=== PATIENT | female | born 1940 | race Caucasian/White ===

== ENCOUNTER 2016-08-29 12:16 | Observation (INO) | payer MEDICARE, OTHER ==
[2016-08-29 13:43] LABS: Hematocrit 36 % (35-47); Mean Corpuscular HGB Conc 33 g/dl (31-36); Mean Corpuscular Hemoglobin 29 pg (27-31); Mean Corpuscular Volume 89 fL (80-97); Mean Platelet Volume 9 um3 (7.4-10.4); Red Blood Count 4.07 10^6/ul (4.0-5.4); Red Cell Distribution Width 14 % (10.5-15); White Blood Count 8.4 10^3/ul (3.5-10.8)
[2016-08-29] MEDS ORDERED: Ondansetron INJ* 2 MG/ML VIAL IV ONE (13:52)
[2016-08-29] MEDS ORDERED: Morphine INJ* 4 MG/ML 1 ML CARPUJECT IV ONE ×2 (13:52→15:38)
[2016-08-29 14:05] LABS: Urine Bacteria 1+ (Absent); Urine Bilirubin Negative (Negative); Urine Glucose Negative (Negative); Urine Nitrite Negative (Negative)
[2016-08-29 14:06] LABS: Albumin 3.6 g/dL (3.2-5.2); C Reactive Protein 179.49 mg/L (< 5.00); EGFR African American 66.1 (>60); EGFR Non-African American 51.4 (>60); Globulin 3.5 g/dL (2-4); Potassium 3.5 mmol/L (3.5-5.0); Total Bilirubin 0.8 mg/dL (0.2-1.0); Total Protein 7.1 g/dL (6.4-8.9)
--- NOTE | 2016-08-29 14:59 | RAD ---
INDICATION: LEFT leg swelling post LEFT knee replacement 1 week ago. COMPARISON: January 10, 2016 TECHNIQUE: Quezada scale, color Doppler, and spectral analysis of the deep veins of the LEFT lower extremity. Vessel compression, phasicity, and augmentation assessed. REPORT: The LEFT common femoral, great saphenous, profunda femoral, femoral, popliteal, peroneal, and posterior tibial veins are patent. Small medial popliteal fossa fluid collection measuring 3.3 x 0.8 x 1.4 cm consistent with a popliteal cyst. No popliteal cyst visualized on the prior ultrasound which may be technical. Patency of the contralateral common femoral vein documented. IMPRESSION: No evidence for LEFT lower extremity deep venous thrombosis. Small LEFT popliteal cyst.
--- NOTE | 2016-08-29 15:17 | RAD ---
INDICATION: Left knee pain, recent total left knee revision replacement August 23 2016 at outside institution. TECHNIQUE: 2 views of the left knee were obtained. FINDINGS: The patient is status post total left knee placement surgery. The bones and prostheses are in normal alignment. There is no evidence for fracture or loosening. There are multiple surgical garrett present anterior and air within the anterior soft tissues consistent with the patient's recent surgery. IMPRESSION: STATUS POST RECENT TOTAL LEFT KNEE REVISION REPLACEMENT.
[2016-08-29] MEDS ORDERED: NS 0.9% 1000 ML* 1,000 ML IV ONE (16:52)
--- NOTE | 2016-08-29 16:57 | PN ---
Progress Note - Progress Note Note: Asked by Dr. Bravo to admit pt s/p knee surgery at [facility] for intractable post op pain. I communicated to Dr. Bravo that medicine will have no problem with admitting the pt as long as there is an available orthopedic surgeon to f/u with pt during the hospital stay.
--- NOTE | 2016-08-29 17:07 | ED ---
Kush Zhu Anna, scribed for Tye Bravo MD on 08/29/16 at 1310 . Lower Extremity - HPI Summary HPI Summary: Patient is a 76 y/o female coming to [facility] presenting with left knee pain that began yesterday. She describes the severity of the pain as 10/10. She was not able to sleep last night because of the pain. Her body felt warm last night, and she was SOB. The pain is not alleviated by the use of Percocet and Tramadol. On 08/23/2016 she had knee surgery with Dr. Her in [place]. She was able to ambulate with assistance before discharge from [facility] and had therapy twice a day. - History of Current Complaint Chief Complaint: ED Stated Complaint: LT KNEE PAIN Time Seen by Provider: 08/29/16 13:04 Hx Obtained From: Patient, Family/Sewing Department Supervisor Onset/Duration: Still Present Pain Intensity: 10 Pain Scale Used: 0-10 Numeric - Allergies/Home Medications Allergies/Adverse Reactions: Allergies Allergy/AdvReac Type Severity Reaction Status Date / Time Meperidine [From Demerol HCl] Allergy Unknown Nausea And Verified 03/28/16 11:27 Vomiting Lactone Allergy GI Upset Verified 03/28/16 11:27 Lactose Allergy Nausea And Verified 03/28/16 11:27 Vomiting Pramipexole Allergy See Comment Verified 03/28/16 11:27 Meloxicam AdvReac Severe Shortness Verified 03/28/16 11:27 of Breath GARY Inhibitors AdvReac Coughing Verified 03/28/16 11:27 Aspirin AdvReac Bleeding Verified 03/28/16 11:27 Calcium Channel Blockers AdvReac Edema Verified 03/28/16 11:27 Naproxen [From Aleve] AdvReac Rash Verified 03/28/16 11:27 Sertraline [From Zoloft] AdvReac Anxiety Verified 03/28/16 11:27 Temazepam [From Restoril] AdvReac See Comment Verified 03/28/16 11:27 dairy Allergy Stomach Uncoded 03/28/16 11:27 Cramps pramipexole Allergy See Comment Uncoded 03/28/16 11:27 PMH/Surg Hx/FS Hx/Imm Hx Endocrine/Hematology History: Reports: Hx Anemia Denies: Hx Diabetes Cardiovascular History: Reports: Hx Hypertension Denies: Hx Pacemaker/ICD Respiratory History: Reports: Hx Sleep Apnea GI History: Reports: Hx Gastroesophageal Reflux Disease History: Reports: Other Problems/Disorders - bladder cancer Denies: Hx Dialysis, Hx Renal Disease Musculoskeletal History: Reports: Hx Arthritis, Hx Back Problems Sensory History: Reports: Hx Contacts or Glasses Denies: Hx Hearing Aid Opthamlomology History: Reports: Hx Contacts or Glasses Neurological History: Reports: Hx Headaches, Hx Migraine, Other Neuro Impairments/Disorders - PAIN CLINIC PATIENT Psychiatric History: Denies: Hx Panic Disorder - Cancer History Cancer Type, Location and Year: BLADDER CA Hx Chemotherapy: No Hx Radiation Therapy: No - Surgical History Surgery Procedure, Year, and Place: Bladder Cancer Excision Cystoscopically; Total Right Knee 2004; Total Left Knee 2006; Right Foot Hammertoe Surgery; LSP SURGERY 2011; LT ANKLE SURGERY; CATARACT BILATERAL, back surgery; Knee surgery Infectious Disease History: Denies: Traveled Outside the [place] in Last 30 Days - Family History Known Family History: Negative: Cardiac Disease - Social History Occupation: Retired Lives: Alone Alcohol Use: None Substance Use Type: Reports: None Smoking Status (MU): Never Smoked Tobacco Review of Systems Positive: Other - Generalized warmth Positive: Shortness Of Breath Positive: Arthralgia All Other Systems Reviewed And Are Negative: Yes Physical Exam - Summary Physical Exam Summary: VITAL SIGNS: Reviewed. GENERAL: Patient is an obese female who is lying comfortable in the stretcher. Patient is not in any acute respiratory distress. HEAD AND FACE: No signs of trauma. No ecchymosis, hematomas or skull depressions. No sinus tenderness. EYES: PERRLA, EOMI x 2, No injected conjunctiva, no nystagmus. EARS: Hearing grossly intact. Ear canals and tympanic membranes are within normal limits. MOUTH: Oropharynx within normal limits. NECK: Supple, trachea is midline, no adenopathy, no JVD, no carotid bruit, no c- spine tenderness, neck with full ROM. CHEST: Symmetric, no tenderness at palpation LUNGS: Clear to auscultation bilaterally. No wheezing or crackles. CVS: Regular rate and rhythm, S1 and S2 present, no murmurs or gallops appreciated. ABDOMEN: Soft, non-tender. No signs of distention. No rebound no guarding, and no masses palpated. Bowel sounds are normal. EXTREMITIES: Left knee with decrease ROM, bandages in the left knee secondary to a knee replacement on 08/23/2016. Good pulses and good capillary refill. NEURO: Alert and oriented x 3. No acute neurological deficits. Speech is normal and follows commands. SKIN: Dry and warm Triage Information Reviewed: Yes Vital Signs On Initial Exam: Initial Vitals Temp Pulse Resp BP Pulse Ox 99.3 F 93 16 128/66 87 08/29/16 12:58 08/29/16 12:58 08/29/16 12:58 08/29/16 12:58 08/29/16 12:58 Vital Signs Reviewed: Yes Diagnostics - Vital Signs Vital Signs Temp Pulse Resp BP Pulse Ox 08/29/16 12:58 99.3 F 93 16 128/66 87 - Laboratory Lab Results: Lab Results 08/29/16 08/29/16 08/29/16 Range/Units 13:27 13:27 13:51 WBC 8.4 (3.5-10.8) 10^3/ul RBC 4.07 (4.0-5.4) 10^6/ul Hgb 12.0 (12.0-16.0) g/dl Hct 36 (35-47) % MCV 89 (80-97) fL MCH 29 (27-31) pg MCHC 33 (31-36) g/dl RDW 14 (10.5-15) % Plt Count 298 (150-450) 10^3/ul MPV 9 (7.4-10.4) um3 Neut % (Auto) 81.2 (38-83) % Lymph % (Auto) 10.0 L (25-47) % [place] % (Auto) 8.2 (1-9) % Eos % (Auto) 0.3 (0-6) % Baso % (Auto) 0.3 (0-2) % Absolute Neuts (auto) 6.8 (1.5-7.7) 10^3/ul Absolute Lymphs (auto) 0.8 L (1.0-4.8) 10^3/ul Absolute Monos (auto) 0.7 (0-0.8) 10^3/ul Absolute Eos (auto) 0 (0-0.6) 10^3/ul Absolute Basos (auto) 0 (0-0.2) 10^3/ul Absolute Nucleated RBC 0.01 10^3/ul Nucleated RBC % 0.1 Sodium 137 (133-145) mmol/L Potassium 3.5 (3.5-5.0) mmol/L Chloride 92 L (101-111) mmol/L Carbon Dioxide 37 H (22-32) mmol/L Anion Gap 8 (2-11) mmol/L BUN 26 H (6-24) mg/dL Creatinine 1.04 H (0.51-0.95) mg/dL Est GFR ( Amer) 66.1 (>60) Est GFR (Non-Af Amer) 51.4 (>60) BUN/Creatinine Ratio 25.0 H (8-20) Glucose 113 H (70-100) mg/dL Calcium 11.0 H (8.6-10.3) mg/dL Total Bilirubin 0.80 (0.2-1.0) mg/dL AST 20 (13-39) U/L ALT 19 (7-52) U/L Alkaline Phosphatase 96 (34-104) U/L C-Reactive Protein 179.49 H (< 5.00) mg/L Total Protein 7.1 (6.4-8.9) g/dL Albumin 3.6 (3.2-5.2) g/dL Globulin 3.5 (2-4) g/dL Albumin/Globulin Ratio 1.0 (1-3) Urine Color Yellow Urine Appearance Cloudy Urine pH 8.0 (5-9) Ur Specific [place] 1.008 L (1.010-1.030) Urine Protein Negative (Negative) Urine Ketones Trace H (Negative) Urine Blood 1+ H (Negative) Urine Nitrate Negative (Negative) Urine Bilirubin Negative (Negative) Urine Urobilinogen Negative (Negative) Ur Leukocyte Esterase Negative (Negative) Urine WBC (Auto) Absent (Absent) Urine RBC (Auto) 1+(3-5/hpf) H (Absent) Ur Squamous Epith Cells Present H (Absent) Urine Bacteria 1+ H (Absent) Hyaline Casts Present H (Absent) Urine Glucose Negative (Negative) Result Diagrams: 08/29/16 13:27 08/29/16 13:27 Lab Statement: Any lab studies that have been ordered have been reviewed, and results considered in the medical decision making process. - Radiology Left Knee XR Xray Interpretation: No Acute Changes Radiology Interpretation Completed By: Radiologist - IMPRESSION: STATUS POST RECENT TOTAL LEFT KNEE REVISION REPLACEMENT. - Ultrasound No standard instances Ultrasound Interpretation: Positive (See Comments) Ultrasound Interpretation Completed By: Radiologist - VENOUS DOPPLER IMPRESSION : No evidence for LEFT lower extremity deep venous thrombosis. Small LEFT popliteal cyst. Re-Evaluation - Re-Evaluation First Eval Re-Evaluation Time: 16:39 Change: Unchanged Comment: The patient reports that she is still in pain. She refuses to go back to [place]. She says that she cannot take care of herself at home. Lower Extremity Course/Dx - Course Assessment/Plan: Patient is a 76 y/o female coming to [facility] presenting with left knee pain that began yesterday. She describes the severity of the pain as 10/10. She was not able to sleep last night because of the pain. Her body felt warm last night, and she was SOB. The pain is not alleviated by the use of Percocet and Tramadol. On 08/23/2016 she had knee surgery with Dr. Mariano in [facility]. She was able to ambulate with assistance before discharge from [facility] and had therapy twice a day. Blood work shows increased BUN and creatinine, CRP 179 consistent with her recent surgery, UA is contaminated. Blood work shows increased BUN and creatinine, glucose of 113 and Calcium of 11. In the Ed she was given IV fluids, Zofran and Morphine for pain. LLE U/S no DVT. Left knee x ray impression: s/p recent total left knee revision replacement. Patient reports that she is unable to ambulate and she is unable to take care of herself and her daughter reports that she can not help. She refuses to go back to [place] with Dr. Her the orthopedic surgeon did her surgery. I spoke with Dr. Wilson from the hospitalist services for admission and she requested an orthopedic consult before admission. I discussed the case with Dr. Stoddard from orthopedics and he will consult for the patient. .casting house worker was also consulted. I discuss my physical exam, findings and test results with Dr. Wilson from the hospitalist services and she agrees to admit patient to his services. Patient is hemodynamically stable alert and oriented x 3. - Diagnoses Differential Diagnosis/HQI/PQRI: Positive: Arthritis, Bursitis, Cellulitis, Dislocation, DVT, Fracture (Closed), Infection, Sprain, Strain Provider Diagnoses: Intractable knee pain, Inadequate pain control, Unable to care for herself, Obesity, S/P knee surgery - Physician Notifications Discussed Care of Patient With: Dr. Stoddard (orthopedics) at 1625. Dr. Stoddard recommends consulting with Dr. Velazquez, who works with the patient's surgeon in [place]. Dr. Velazquez (orthopedics) at 1628. Dr. Velazquez said the patient should consult with Dr. Her, her original surgeon. Dr. Stoddard (orthopedics) at 1640. Dr. Stoddard will come see the patient and accepts the patient for admission. Discharge - Discharge Plan Condition: Stable Disposition: ADMITTED TO [facility] documentation as recorded by the uKsh babin Anna accurately reflects the service I personally performed and the decisions made by me, Tye Bravo MD.
[2016-08-29] MEDS ORDERED: oxyCODONE/Acetamin 5/325 MG* TAB PO PRN (17:45)
[2016-08-29] MEDS ORDERED: Ondansetron INJ* 2 MG/ML VIAL IV PRN (17:45)
[2016-08-29] MEDS ORDERED: Enoxaparin(*) 30 MG/0.3 ML SYR SUBCUT SCH (18:00)
[2016-08-29] MEDS ORDERED: LORazepam TAB(*) 0.5 MG PO PRN (18:02)
[2016-08-29] MEDS: Omeprazole CAP* 20 MG PO SCH (19:39)
[2016-08-29] MEDS: oxyCODONE/Acetamin 5/325 MG* TAB PO SCH (19:39)
[2016-08-29] MEDS: Pregabalin CAP(*) 100 MG PO SCH (19:39)
[2016-08-29] MEDS: Docusate CAP* 100 MG PO SCH (19:39)
[2016-08-29] MEDS: Enoxaparin(*) 30 MG/0.3 ML SYR SUBCUT SCH (19:40)
--- NOTE | 2016-08-29 20:58 | HP ---
ADMISSION HISTORY AND PHYSICAL: DATE OF ADMISSION/DICTATION: 08/29/16 PRIMARY CARE PROVIDER: Dr. Purdy. ADMITTING PROVIDER: ELIANA Warner SUPERVISING PHYSICIAN: Dr. Sherri Wilson.* (DICTATED BY ELIANA WARNER) CONSULTING ORTHOPEDIST: Dr. Stoddard. CHIEF COMPLAINT: Intractable left knee pain. HISTORY OF PRESENT ILLNESS: This is a 76-year-old female who is postop day 6 status post revision of her left total knee replacement that was performed at [facility] with Dr. Her. The patient was discharged yesterday from [facility] with tramadol and Percocet for pain control and Lovenox for DVT prophylaxis. The patient states that she had been having difficulty with pain control throughout her hospital admission and there was some sort of insurance obstacle that prohibited her from being discharged to subacute rehab, and so instead she returned home with the help of her daughter. She awoke this morning with significant pain and had what she described as a panic attack as a result of that, some deep breathing and she improved. She was brought to the emergency department for further evaluation. The patient describes some mild nausea and decreased appetite that has been persistent since the surgery. She has been afebrile at home. She denies any shortness of breath or chest pain. She describes that her pain is not necessarily acutely worse today, but she has had poor control since the surgery. Also of note, the patient did not receive Lyrica during her last hospitalization. She is unsure why this was discontinued and the recommendation was to discontinue this at discharge and she did not resume it yesterday after returning home either. The patient has had two prior total knee replacements. These were several years ago and when asked about whether she had difficulty with pain control at that time, she was unable to answer, stating that it was too long ago for her to remember, but she does believe that she participated in rehab following both of those and was successful. PAST MEDICAL HISTORY: 1. Obstructive sleep apnea. 2. GERD. 3. Remote history of local bladder cancer, status post excision. 4. Iron-deficiency anemia. 5. Chronic back pain with radicular symptoms. 6. Migraine syndrome. PAST SURGICAL HISTORY: 1. Bladder cancer excision via cystoscopy. 2. Right total knee arthroplasty, 2004. 3. Left total knee arthroplasty, 2006. 4. Right hammer toe. 5. Lumbar spine surgery, 2012. 6. Left ankle surgery. 7. Bilateral cataract excision. HOME MEDICATIONS: 1. Vitamin D 2000 units p.o. daily. 2. Vitamin B12 1000 mcg p.o. daily. 3. Lovenox 30 mg subcu q.12 hours. 4. Nexium 40 mg p.o. b.i.d. 5. Ferrous sulfate 65 mg p.o. daily. 6. Lasix 20 mg p.o. daily. 7. Hydrochlorothiazide 25 mg p.o. daily. 8. Lorazepam 0.5 mg p.o. q.8 hours p.r.n. anxiety. 9. Multivitamin 1 tablet p.o. b.i.d. 10. Lyrica 100 mg p.o. t.i.d. - of note, this was chronic medication for the patient but was not continued during her recent hospitalization. 11. Percocet 1 to 2 tablets p.o. q.6 hours as needed for pain. 12. Ultram 50 mg p.o. q.6 hours p.r.n. mild pain. SOCIAL HISTORY: The patient lives alone. Her daughter is nearby. She denies any history of smoking and no regular alcohol consumption. REVIEW OF SYSTEMS: As noted above in HPI and otherwise negative. PHYSICAL EXAMINATION GENERAL: This is a pleasant 76-year-old female accompanied by her daughter who is in no acute distress. VITAL SIGNS: Initially temperature 99.3 degrees Fahrenheit, pulse 93 beats per minute, respiratory rate 16 per minute, oxygen saturation 91% on room air, and blood pressure 128/66 mmHg. HEENT: Head is normocephalic, atraumatic. Moist mucous membranes. RESPIRATORY: Lungs are clear to auscultation without wheezes, crackles, or rhonchi. CARDIOVASCULAR: Heart has a regular rate and rhythm without murmurs, rubs, or gallops. ABDOMEN: Soft and nontender to palpation. EXTREMITIES: There is a dry dressing in place over her left knee which is taken down showing post-surgical incision with garrett in place, minimal surrounding erythema and no purulent drainage noted. She does have a moderate knee effusion and the patient is able to do some knee flexion, but with complaints of pain. PSYCH: The patient is alert and appropriately oriented. SKIN: Limited exam, shows no concerning rashes or lesions. DIAGNOSTIC STUDIES/LAB DATA: CBC shows a white blood cell count of 8400, hemoglobin of 12, platelet count of 298,000. Comprehensive metabolic panel shows normal sodium of 137 mmol/L, potassium 3.5 mmol/L, BUN of 26, and creatinine of 1.04. Random glucose 113 mg/dL. Total bilirubin and transaminases within normal limits. CRP is elevated at nearly 180. Procalcitonin is normal at 0.1. Urinalysis significant for 1+ blood and 1+ bacteria, otherwise unremarkable. Imagin. Lower extremity Doppler shows no evidence of DVT. 2. X-ray of the knee shows expected postoperative changes, but no acute process. ASSESSMENT AND PLAN: This is a 76-year-old female with obstructive sleep apnea , gastroesophageal reflux disease, iron-deficiency anemia, and remote history of bladder cancer, who presents with complaints of intractable left knee pain after one day post discharge from [facility], status post revision of her left total knee arthroplasty. 1. Status post revision of left total knee arthroplasty with intractable pain - the patient appears to be comfortable at rest but is in a significant amount of pain with any movement. This does not seem to be an acute complaint, but rather an unresolved complication postoperatively. Plan to resume her Lyrica, place her on scheduled Percocet and use p.r.n. morphine for additional pain relief if necessary. Dr. Stoddard, orthopedic surgeon, has agreed to evaluate the patient and she will be seen tomorrow morning. Discussed imaging with him specifically and did not request any additional images other than plain x-rays obtained in the emergency department. Very low suspicion for this to be a septic arthritis. Her CRP is significantly elevated, but this is in the setting of relatively recent surgery. Procalcitonin is negative at 0.1. The knee appears to be benign. She is afebrile and does not otherwise appear to be acutely ill. Ultrasound was performed which was negative for deep venous thrombosis. The patient would ultimately benefit from subacute rehab and will ask her case finishing machine adjuster and social workers to help with this process. 2. Obstructive sleep apnea. I shall order her CPAP for her. 3. Gastroesophageal reflux disease. Continue PPI. 4. Iron-deficiency anemia. Continue iron supplementation. 5. Remote history of bladder cancer. 6. Hypertension - of note, the patient is on both hydrochlorothiazide and Lasix , unsure if this is completely accurate. We will choose to continue her Lasix at this time and hold hydrochlorothiazide. This can be clarified further at discharge. 7. Obesity with BMI of 42. 8. Code status. The patient is full code. 9. DVT prophylaxis. Will continue prophylaxis recommendations from her orthopedic surgeon which is Lovenox 30 mg subcu q.12 hours. 10. Healthcare proxy is her daughter, Maria A. DISPOSITION: The patient is being admitted to observation status for complaints of intractable pain status post revision of left total knee arthroplasty performed at [facility]. Orthopedic Surgery consult is pending for tomorrow morning. Case management will be involved to help with appropriate disposition planning as the patient would benefit from subacute rehab rather than returning home. ELIANA WARNER CC: Dr. Purdy * [id number]/CPS #: [id number] JAMA
[2016-08-29] MEDS: Morphine INJ* 2 MG/ML 1 ML CARPUJECT IV PRN (22:13)
[2016-08-30] MEDS: oxyCODONE/Acetamin 5/325 MG* TAB PO SCH ×6 (00:11→22:01)
[2016-08-30] MEDS: Morphine INJ* 2 MG/ML 1 ML CARPUJECT IV PRN ×2 (03:14→10:36)
[2016-08-30 07:06] LABS: Hematocrit 33 % (35-47); Hemoglobin 10.7 g/dl (12.0-16.0); Mean Corpuscular HGB Conc 33 g/dl (31-36); Mean Corpuscular Hemoglobin 30 pg (27-31); Mean Corpuscular Volume 90 fL (80-97); Mean Platelet Volume 9 um3 (7.4-10.4); Red Blood Count 3.63 10^6/ul (4.0-5.4); Red Cell Distribution Width 14 % (10.5-15); White Blood Count 6.9 10^3/ul (3.5-10.8)
[2016-08-30 07:15] LABS: BUN/Creatinine Ratio 27.4 (8-20); Calcium 9.9 mg/dL (8.6-10.3); EGFR African American 73.4 (>60)
[2016-08-30] MEDS ORDERED: Potassium Chlor TAB* 20 MEQ TAB.ER PO ONE ×2 (07:29→12:00)
[2016-08-30 08:25] LABS: Magnesium 2.4 mg/dL (1.9-2.7)
[2016-08-30] MEDS: Omeprazole CAP* 20 MG PO SCH ×2 (09:21→21:07)
[2016-08-30] MEDS: Docusate CAP* 100 MG PO SCH ×2 (09:21→21:06)
[2016-08-30] MEDS: Pregabalin CAP(*) 100 MG PO SCH ×3 (09:22→21:06)
[2016-08-30] MEDS: Enoxaparin(*) 30 MG/0.3 ML SYR SUBCUT SCH ×2 (09:23→21:07)
[2016-08-30] MEDS: Furosemide TAB* 20 MG PO SCH (09:23)
--- NOTE | 2016-08-30 14:01 | CONS ---
ORTHOPEDIC CONSULT: DATE OF CONSULT: 08/30/16 ATTENDING PHYSICIAN: Rashi Stoddard MD CHIEF COMPLAINT: Left knee. HISTORY OF PRESENT ILLNESS: Mrs. Taylor is a 76-year-old female with long history of troubles with both of her knees. She undergone a right unicondylar knee replacement in 1989 and then underwent a revision in April of [address] Kris Deng. She had gone to the [facility] for it afterwards and had done quite well. In July of 2006, Dr. Prabhakar Cody had done a left total knee arthroplasty for her. She had done well until this past year. She reports for the past 8 months, she has had debilitating pain and feels as if she has been bounced around some. She eventually was told there was something wrong with the left knee and Dr. Cody said that he would send her down to [place] to get this fixed, as she reports that he does not do surgery here at [facility], therefore he will send her down to [place]. On August 23, she underwent a revision with Dr. John Her down at [place]. She did well postoperatively, but they did want her to get into a Rehab Facility. This was, however, denied by insurance and then there were tentative plans to go to [facility]. She reports that they did not want her to go to [facility] and wanted her to go home and so she did. She did, however, have intractable pain and was unable to get up and get around while she was at home and she was brought by ambulance to the emergency room here yesterday afternoon. The ER attendant did call me about this as she would be a social congregation and I discussed with him to notify Dr. Cody, as Dr. Her is part of his practice. He told the ER attendant that he would not be available to see her and I was called back again for her. I said I would see her this morning and she reports that she is doing better. She does, however, break down and cry when she relates about the 8 months of pain that she was in and her inability to sleep previously. PREVIOUS MEDICAL HISTORY: Sleep apnea, GERD, bladder cancer. MEDICATIONS ON ADMISSION: 1. Percocet 1 to 2 tabs every 6 hours p.r.n. 2. Ultram 50 mg q.6 hours p.r.n. mild pain. 3. Vitamin D. 4. Vitamin B12. 5. Nexium 40 mg b.i.d. 6. Iron supplementation. 7. Lasix 20 mg daily. 8. HCTZ 25 mg daily. 9. Lorazepam 0.5 mg every 8 hours as needed p.r.n. anxiety. 10. Lovenox 30 mg b.i.d. PHYSICAL EXAM: General: Heavyset mature female, in no apparent distress after stopping crying, lying in the bed. Left knee, her knee exam is benign. She has the usual midline incision with garrett with the usual skin irritation. Range of motion was not tested. DIAGNOSTIC STUDIES/LAB DATA: X-rays and ultrasound done are available for review. X-ray shows a nicely aligned stem components on the femur and tibia. Ultrasound was negative for DVT. ASSESSMENT: Status post revision, left total knee arthroplasty. PLAN: I discussed with Ms. Taylor that she is doing well. There is better control of her pain and we will work to continue to stay that way. We will make sure Physical Therapy is consulted to get her on the total knee protocol so that she does not get stiff and can get the motion that we all hope for. Once we get her more comfortable and moving a bit, she might be able to go home , but we will see how she progresses with PT and see if she does need a stay in a subacute facility. [id number]/[facility] #: [id number] JAMA
--- NOTE | 2016-08-30 18:53 | PN ---
Subjective Date of Service: 08/30/16 Interval History: Patient seen and examined at bedside. Pt states that she continues to have left knee pain, but was able to ambulate with Physical Therapy today. Denies fever, chills, shortness of breath, chest discomfort, N/V/D. Family History: Unchanged from Admission Social History: Unchanged from Admission Past Medical History: Unchanged from Admission Objective Active Medications: Docusate Sodium (Colace Cap*) 100 mg PO BID ALEXANDRO Enoxaparin Sodium (Lovenox(*)) 30 mg SUBCUT Q12HR ALEXANDRO Furosemide (Lasix Tab*) 20 mg PO QAM ALEXANDRO Lorazepam (Ativan Tab(*)) 0.5 mg PO Q8H PRN Reason: SPASMS - MUSCLE Morphine Sulfate (Morphine Inj (Syringe)*) 4 mg IV Q4H PRN Reason: PAIN Omeprazole (Prilosec Cap*) 20 mg PO BID ALEXANDRO Ondansetron HCl (Zofran Inj*) 4 mg IV Q4H PRN Reason: NAUSEA/VOMITING Oxycodone/Acetaminophen (Percocet 5/325 Tab*) 2 tab PO Q6H ALEXANDRO Pregabalin (Lyrica Cap(*)) 100 mg PO TID [facility] Vital Signs 08/29/16 08/29/16 08/29/16 19:39 20:00 20:45 Temperature 97.8 F Pulse Rate 102 Respiratory 16 16 16 Rate Blood Pressure 125/74 (mmHg) O2 Sat by Pulse 98 Oximetry 08/29/16 08/30/16 08/30/16 23:13 00:11 00:42 Temperature 97.8 F Pulse Rate 92 Respiratory 16 18 18 Rate Blood Pressure 120/55 (mmHg) O2 Sat by Pulse 90 Oximetry 08/30/16 08/30/16 08/30/16 04:24 05:14 05:16 Temperature 97.7 F Pulse Rate 87 Respiratory 18 18 18 Rate Blood Pressure 154/64 (mmHg) O2 Sat by Pulse 91 Oximetry 08/30/16 08/30/16 08/30/16 06:14 08:00 08:26 Temperature 97.6 F Pulse Rate 86 Respiratory 16 12 18 Rate Blood Pressure 128/58 (mmHg) O2 Sat by Pulse 98 Oximetry 08/30/16 08/30/16 08/30/16 09:22 10:36 11:13 Temperature 97.3 F Pulse Rate 92 Respiratory 14 18 18 Rate Blood Pressure 159/48 (mmHg) O2 Sat by Pulse 96 Oximetry 08/30/16 08/30/16 16:56 17:49 Temperature 97.5 F Pulse Rate 92 Respiratory 12 16 Rate Blood Pressure 126/52 (mmHg) O2 Sat by Pulse 95 Oximetry Oxygen Devices in Use Now: Nasal Cannula - 2L Appearance: NAD, laying in bed Eyes: No Scleral Icterus, PERRLA Ears/Nose/Mouth/Throat: NL Teeth, Lips, Gums, Mucous Membranes Moist Neck: NL Appearance and Movements; NL JVP, Trachea Midline Respiratory: Symmetrical Chest Expansion and Respiratory Effort, Clear to Auscultation Cardiovascular: NL Sounds; No Murmurs; No JVD, RRR Abdominal: NL Sounds; No Tenderness; No Distention - Bowel sounds present Extremities: No Edema Skin: - - Incision to left knee well approximated with garrett intact, open to air Neurological: Alert and Oriented x 3, NL Muscle Strength and Tone Lines/Tubes/Other Access: Clean, Dry and Intact Peripheral IV - site benign Nutrition: Taking PO's Result Diagrams: 08/30/16 06:30 08/30/16 06:30 Additional Lab and Data: Assess/Plan/Problems-Billing Assessment: Ms. Taylor is a 76 yo female with PMH significant for VICKY, GERD, ANDREW who presented to the emergency room with complaints of intractable left knee pain after being discharged from [facility] s/p left total knee arthroplasty. - Patient Problems (1) Status post total left knee replacement Code(s): Z96.652 - PRESENCE OF LEFT ARTIFICIAL KNEE JOINT SNOMED Code(s): 9188777177480 Comment: - Intractable pain, pain with some improvement - Continue Lyrica, Percocet and Morphine - Othro consult, appreciate input - Continue OT/PT - Pt will likely need EYAD (2) VICKY (obstructive sleep apnea) Code(s): G47.33 - OBSTRUCTIVE SLEEP APNEA (ADULT) (PEDIATRIC) SNOMED Code(s): 40539753 Comment: - CPAP (3) GERD (gastroesophageal reflux disease) Code(s): K21.9 - GASTRO-ESOPHAGEAL REFLUX DISEASE WITHOUT ESOPHAGITIS SNOMED Code(s): 168350081 Comment: - Continue PPI (4) ANDREW (iron deficiency anemia) Code(s): D50.9 - IRON DEFICIENCY ANEMIA, UNSPECIFIED SNOMED Code(s): 47474678 Comment: - Continue iron supplementation (5) HTN (hypertension) Code(s): I10 - ESSENTIAL (PRIMARY) HYPERTENSION SNOMED Code(s): 73458847 Comment: - SBP 120-150's - Continue Lasix - Hold HCTZ, need to verify if Pt is taking both lasix and HCTZ at home (6) Obesity Code(s): E66.9 - OBESITY, UNSPECIFIED SNOMED Code(s): 991462185 Comment: - BM 38 (7) DVT prophylaxis Code(s): [id number] - SNOMED Code(s): 150308926 Comment: - Continue Lovenox (8) Full code status Code(s): Z78.9 - OTHER SPECIFIED HEALTH STATUS SNOMED Code(s): 547780252 Status and Disposition: OBV. Discharge to home vs EYAD once pain is controlled.
[2016-08-31] MEDS: oxyCODONE/Acetamin 5/325 MG* TAB PO SCH ×4 (01:55→14:06)
[2016-08-31 06:42] LABS: BUN/Creatinine Ratio 26.9 (8-20); Calcium 10.1 mg/dL (8.6-10.3); EGFR African American 75.2 (>60); EGFR Non-African American 58.5 (>60); Potassium 3.6 mmol/L (3.5-5.0)
[2016-08-31] MEDS: Omeprazole CAP* 20 MG PO SCH ×2 (10:23→21:35)
[2016-08-31] MEDS: Furosemide TAB* 20 MG PO SCH (10:23)
[2016-08-31] MEDS: Docusate CAP* 100 MG PO SCH ×2 (10:23→21:35)
[2016-08-31] MEDS: Pregabalin CAP(*) 100 MG PO SCH ×3 (10:23→21:36)
[2016-08-31] MEDS: Enoxaparin(*) 30 MG/0.3 ML SYR SUBCUT SCH ×2 (10:23→21:37)
[2016-08-31] MEDS ORDERED: Magnesium Hydroxide LIQ* 30 ML UDC PO PRN (14:26)
[2016-08-31] MEDS ORDERED: Polyethylene Glycol 3350* 17 GM PACKET PO PRN (14:40)
--- NOTE | 2016-08-31 14:41 | PN ---
Subjective Date of Service: 08/31/16 Interval History: Patient seen and examined at bedside. Pt reports that she is doing well with Physical Therapy. Denies fever, chills, shortness of breath, chest discomfort, N /V/D or urinary symptoms. Pt reports that she continues to have left knee pain, but it is improving with pain medication. Pt states that she is fearful of going home and being alone. Discussed some of the options for assistance at home and will ask Social Work to see. Pt report constipation. Family History: Unchanged from Admission Social History: Unchanged from Admission Past Medical History: Unchanged from Admission Objective Active Medications: Docusate Sodium (Colace Cap*) 100 mg PO BID [facility] Last Admin: 08/31/16 10:23 Dose: 100 mg Enoxaparin Sodium (Lovenox(*)) 30 mg SUBCUT Q12HR [facility] Last Admin: 08/31/16 10:23 Dose: 30 mg Furosemide (Lasix Tab*) 20 mg PO QAM [facility] Last Admin: 08/31/16 10:23 Dose: 20 mg Lorazepam (Ativan Tab(*)) 0.5 mg PO Q8H PRN PRN Reason: SPASMS - MUSCLE Morphine Sulfate (Morphine Inj (Syringe)*) 4 mg IV Q4H PRN PRN Reason: PAIN Last Admin: 08/30/16 10:36 Dose: 4 mg Omeprazole (Prilosec Cap*) 20 mg PO BID [facility] PRN Reason: Protocol Last Admin: 08/31/16 10:23 Dose: 20 mg Ondansetron HCl (Zofran Inj*) 4 mg IV Q4H PRN PRN Reason: NAUSEA/VOMITING Oxycodone/Acetaminophen (Percocet 5/325 Tab*) 2 tab PO Q4HR [facility] Last Admin: 08/31/16 14:06 Dose: 2 tab Pregabalin (Lyrica Cap(*)) 100 mg PO TID [facility] Last Admin: 08/31/16 14:03 Dose: 100 mg Vital Signs 08/30/16 08/30/16 08/30/16 14:41 16:31 16:56 Temperature 97.5 F Pulse Rate 92 Respiratory 12 16 12 Rate Blood Pressure 126/52 (mmHg) O2 Sat by Pulse 95 Oximetry 08/30/16 08/30/16 08/30/16 17:49 19:13 19:18 Temperature 98.0 F Pulse Rate 96 Respiratory 16 16 16 Rate Blood Pressure 131/56 (mmHg) O2 Sat by Pulse 95 Oximetry 08/30/16 08/30/16 08/30/16 21:13 21:55 22:01 Temperature Pulse Rate Respiratory 17 17 Rate Blood Pressure (mmHg) O2 Sat by Pulse 94 Oximetry 08/30/16 08/31/16 08/31/16 23:06 00:01 00:47 Temperature 97.9 F Pulse Rate 86 Respiratory 15 15 18 Rate Blood Pressure 126/57 (mmHg) O2 Sat by Pulse 95 Oximetry 08/31/16 08/31/16 08/31/16 07:27 07:59 08:00 Temperature 97.4 F Pulse Rate 86 Respiratory 16 14 16 Rate Blood Pressure 133/56 (mmHg) O2 Sat by Pulse 98 98 Oximetry 08/31/16 08/31/16 08/31/16 09:42 10:23 10:24 Temperature Pulse Rate Respiratory 16 16 Rate Blood Pressure (mmHg) O2 Sat by Pulse 98 Oximetry Oxygen Devices in Use Now: None Appearance: NAD, sitting up in a chair Eyes: No Scleral Icterus, PERRLA Ears/Nose/Mouth/Throat: NL Teeth, Lips, Gums, Mucous Membranes Moist Neck: NL Appearance and Movements; NL JVP, Trachea Midline Respiratory: Symmetrical Chest Expansion and Respiratory Effort, Clear to Auscultation Cardiovascular: NL Sounds; No Murmurs; No JVD, RRR Abdominal: NL Sounds; No Tenderness; No Distention - Bowel sounds present Extremities: No Edema Skin: - - Incision to left knee well approximated with garrett intact Neurological: Alert and Oriented x 3, NL Muscle Strength and Tone Lines/Tubes/Other Access: Clean, Dry and Intact Peripheral IV - site benign Nutrition: Taking PO's Result Diagrams: 08/30/16 06:30 08/31/16 05:59 Additional Lab and Data: Microbiology and Other Data: Microbiology 08/29/16 13:51 Urine Urine Culture - Preliminary Escherichia Coli Assess/Plan/Problems-Billing Assessment: Ms. Taylor is a 76 yo female with PMH significant for VICKY, GERD, ANDREW who presented to the emergency room with complaints of intractable left knee pain after being discharged from [facility] s/p left total knee arthroplasty. - Patient Problems (1) Status post total left knee replacement Code(s): Z96.652 - PRESENCE OF LEFT ARTIFICIAL KNEE JOINT SNOMED Code(s): 9388085260274 Comment: - Intractable pain, improving - Continue Lyrica, Percocet and Morphine - Othro consult, appreciate input - Continue OT/PT - Pt with constipation, will start a bowel regime (2) Asymptomatic bacteriuria Code(s): R82.71 - BACTERIURIA SNOMED Code(s): 887118428 Comment: - Asymtomatic - Afebrile, no leukocytosis - Urine growing E Coli - Holding on ABX at this time (3) VICKY (obstructive sleep apnea) Code(s): G47.33 - OBSTRUCTIVE SLEEP APNEA (ADULT) (PEDIATRIC) SNOMED Code(s): 15494421 Comment: - CPAP (4) GERD (gastroesophageal reflux disease) Code(s): K21.9 - GASTRO-ESOPHAGEAL REFLUX DISEASE WITHOUT ESOPHAGITIS SNOMED Code(s): 723756314 Comment: - Continue PPI (5) ANDREW (iron deficiency anemia) Code(s): D50.9 - IRON DEFICIENCY ANEMIA, UNSPECIFIED SNOMED Code(s): 01907612 Comment: - Continue iron supplementation (6) HTN (hypertension) Code(s): I10 - ESSENTIAL (PRIMARY) HYPERTENSION SNOMED Code(s): 23244063 Comment: - SBP 120-130's - Discontinue Lasix, Pt takes PRN at home for LE swelling - Resume HCTZ (7) Obesity Code(s): E66.9 - OBESITY, UNSPECIFIED SNOMED Code(s): 699713302 Comment: - BM 38 (8) DVT prophylaxis Code(s): WUR9534 - SNOMED Code(s): 672578507 Comment: - Continue Lovenox (9) Full code status Code(s): Z78.9 - OTHER SPECIFIED HEALTH STATUS SNOMED Code(s): 945362364 Status and Disposition: OBV. Discharge to home vs EYAD once pain is controlled. Possible discharge to home in the AM.
[2016-08-31] MEDS ORDERED: oxyCODONE TAB* 5 MG TAB PO PRN (16:41)
[2016-08-31] MEDS: Acetaminophen TAB* 325 MG PO SCH (16:59)
[2016-08-31] MEDS: oxyCODONE TAB* 5 MG TAB PO PRN (17:00)
[2016-09-01] MEDS: Acetaminophen TAB* 325 MG PO SCH ×2 (01:04→08:31)
[2016-09-01] MEDS: oxyCODONE TAB* 5 MG TAB PO PRN ×2 (03:21→12:05)
[2016-09-01 07:31] VITALS: BP 137/56
[2016-09-01] MEDS: Enoxaparin(*) 30 MG/0.3 ML SYR SUBCUT SCH (08:31)
[2016-09-01] MEDS: Pregabalin CAP(*) 100 MG PO SCH (08:32)
[2016-09-01] MEDS: Docusate CAP* 100 MG PO SCH (08:32)
[2016-09-01] MEDS: Omeprazole CAP* 20 MG PO SCH (08:32)
[2016-09-01] MEDS ORDERED: Hydrochlorothiazide TAB* 25 MG PO SCH (09:00)
--- NOTE | 2016-09-01 13:03 | PN ---
Progress Note - Progress Note SOAP: Subjective: [76 y/o female s/p L knee revision at [place], patient being followed by Dr. Cody who has seen patient in house. States pain improved, controlled with percocet, will be d/c'd today to home, customs collector is coming to help with home transfer. ] Objective: [General- WEll appearing, resting comfortably in bed MSK- Incision C/D/I, garrett in place, no drainage noted. + dorsi/ plantarflexion ] Vital Signs Temp 98.1 F 09/01/16 07:21 Pulse 95 09/01/16 07:21 Resp 18 09/01/16 12:05 BP 137/56 09/01/16 07:21 Pulse Ox 92 09/01/16 08:00 Intake & Output 08/31/16 09/01/16 09/01/16 18:59 06:59 18:59 Intake Total 1010 600 330 Balance 1010 600 330 Intake: Oral 1010 600 330 Other: Estimated Void Medium Medium # Bowel Movements 0 # Voids 3 2 Assessment: [76 y/o female admitted for knee pain s/p L knee revision at [place]. ] Plan: [- D/C to home today - Follow up @ [place] on 09/07/2016 - Ortho to sign off. ]
--- NOTE | 2016-09-01 21:45 | PN ---
Subjective Date of Service: 09/01/16 Interval History: Patient seen and examined at bedside. Pt states that her pain is better controlled and she was able to ambulate in the halls with Pt. Discussed with Pt doing small amounts of activity frequently to assist with pain control. In addition discussed use of ice and elevating the leg to assist with pain medication. Denies fever, chills, shortness of breath, chest discomfort, N/V/D. Pt reports constipation, Pt was encouraged to drink fluids and maintain a bowel regime. Family History: Unchanged from Admission Social History: Unchanged from Admission Past Medical History: Unchanged from Admission Objective Vital Signs 08/31/16 08/31/16 09/01/16 23:36 23:54 03:21 Temperature 97.8 F Pulse Rate 98 Respiratory 16 16 18 Rate Blood Pressure 134/50 (mmHg) O2 Sat by Pulse 94 Oximetry 09/01/16 09/01/16 09/01/16 05:21 07:21 08:00 Temperature 98.1 F Pulse Rate 95 Respiratory 19 16 20 Rate Blood Pressure 137/56 (mmHg) O2 Sat by Pulse 92 92 Oximetry Oxygen Devices in Use Now: None Appearance: NAD, sitting up in a chair Eyes: No Scleral Icterus, PERRLA Ears/Nose/Mouth/Throat: NL Teeth, Lips, Gums, Mucous Membranes Moist Neck: NL Appearance and Movements; NL JVP, Trachea Midline Respiratory: Symmetrical Chest Expansion and Respiratory Effort, Clear to Auscultation Cardiovascular: NL Sounds; No Murmurs; No JVD, RRR Extremities: No Edema Skin: - - Incision to left knee well aprroximated with garrett intact Neurological: Alert and Oriented x 3, NL Muscle Strength and Tone Lines/Tubes/Other Access: Clean, Dry and Intact Peripheral IV - site benign Nutrition: Taking PO's Result Diagrams: 08/30/16 06:30 08/31/16 05:59 Additional Lab and Data: Microbiology and Other Data: Microbiology 08/29/16 13:51 Urine Urine Culture - Preliminary Escherichia Coli Assess/Plan/Problems-Billing Assessment: Ms. Taylor is a 76 yo female with PMH significant for VICKY, GERD, ANDREW who presented to the emergency room with complaints of intractable left knee pain after being discharged from [facility] s/p left total knee arthroplasty. - Patient Problems (1) Status post total left knee replacement Code(s): Z96.652 - PRESENCE OF LEFT ARTIFICIAL KNEE JOINT SNOMED Code(s): 7343243301740 Comment: - Intractable pain, improving - Continue Tylenol, Lyrica and Percocet - Ortho consult, appreciate input - Continue OT/PT at home - Pt with constipation, continue bowel regime (2) Asymptomatic bacteriuria Code(s): R82.71 - BACTERIURIA SNOMED Code(s): 922888790 Comment: - Asymtomatic - Afebrile, no leukocytosis - Urine growing E Coli - Holding on ABX at this time (3) VICKY (obstructive sleep apnea) Code(s): G47.33 - OBSTRUCTIVE SLEEP APNEA (ADULT) (PEDIATRIC) SNOMED Code(s): 24901681 Comment: - CPAP (4) GERD (gastroesophageal reflux disease) Code(s): K21.9 - GASTRO-ESOPHAGEAL REFLUX DISEASE WITHOUT ESOPHAGITIS SNOMED Code(s): 395168542 Comment: - Continue PPI (5) ANDREW (iron deficiency anemia) Code(s): D50.9 - IRON DEFICIENCY ANEMIA, UNSPECIFIED SNOMED Code(s): 30238155 Comment: - Continue iron supplementation (6) HTN (hypertension) Code(s): I10 - ESSENTIAL (PRIMARY) HYPERTENSION SNOMED Code(s): 75955687 Comment: - SBP 100-130's - Continue Lasix PRN at home for LE swelling and HCTZ (7) Obesity Code(s): E66.9 - OBESITY, UNSPECIFIED SNOMED Code(s): 495301148 Comment: - BM 38 (8) DVT prophylaxis Code(s): NCX2672 - SNOMED Code(s): 295057123 Comment: - Continue Lovenox (9) Full code status Code(s): Z78.9 - OTHER SPECIFIED HEALTH STATUS SNOMED Code(s): 226681009 Status and Disposition: OBV. Stable for discharge to home.
--- NOTE | 2016-09-02 04:03 | DS ---
ADDENDUM NOW INCLUDED ON THIS REPORT DISCHARGE SUMMARY: DATE OF ADMISSION: 08/29/16 DATE OF DISCHARGE: 09/01/16 ATTENDING PHYSICIAN: Dr. Rick Red * (dictated by Tracy Gordillo NP). PRIMARY CARE PROVIDER: Dr. Herrera Purdy. PRIMARY DIAGNOSIS: Intractable left knee pain status post left total knee arthroplasty. SECONDARY DIAGNOSES: 1. Obstructive sleep apnea. 2. Gastroesophageal reflux disease. 3. Iron deficiency anemia. 4. Remote history of bladder cancer. 5. Hypertension. 6. Obesity with BMI of 42. CONSULTATIONS WHILE IN THE HOSPITAL: Dr. Rashi Stoddard with Orthopedic Surgery. STUDIES WHILE IN THE HOSPITAL: 1. Left knee x-ray on 08/29/16. Radiologist's impression: Status post recent total left knee revision replacement. 2. Left lower extremity venous ultrasound on 08/29/16. Radiologist's impression: No evidence for left lower extremity deep vein thrombosis. Small left popliteal cyst. DISCHARGE MEDICATIONS: New home medications: 1. Milk of magnesia 30 mL oral every 6 hours as needed for constipation. 2. Acetaminophen 975 mg every 8 hours as needed for pain. Continued home medications: 1. Hydrochlorothiazide 25 mg oral every morning. 2. Multivitamin 1 tablet oral twice daily. 3. Vitamin B12 1000 mcg oral every morning. 4. Nexium 40 mg oral twice daily. 5. Lyrica 100 mg oral 3 times daily. 6. Ferrous sulfate 65 mg oral every morning. 7. Furosemide 20 mg oral every morning as needed for lower extremity swelling. 8. Lovenox 30 mg subcutaneous every 12 hours. 9. Lorazepam 0.5 mg oral every 8 hours as needed for muscle spasms. 10. Vitamin D3 2000 units oral every morning. Changed home medications: Oxycodone/acetaminophen 10/325 one tablet oral every 6 hours as needed for pain. Discontinued home medications: Tramadol. PAST MEDICAL HISTORY/HOSPITAL COURSE: Ms. Taylor is a 76-year-old female, who presented to the hospital 6 days postoperative revision of her left total knee replacement that was performed at [facility] with Dr. Her. The patient reports being discharged from the [facility] on August 28 with prescriptions for tramadol and Percocet for pain control in addition to Lovenox for DVT prophylaxis. The patient states that she had been having difficulty with pain control throughout her hospital admission and due to an insurance obstacle, she was unable to go to subacute or acute rehab postoperatively, so the patient returned home with the help of her daughter. The patient reports awaking with a significant amount of pain and what was described as a panic attack as a result. The patient reports her symptoms improved with some deep breathing. It is also noted that the patient is reported to have mild nausea and decreased appetite that has been persistent since her surgery. She had been afebrile at home denying any shortness of breath or chest pain. The patient does not report that her pain is necessarily acutely worsened on her day of presentation, but in general, her pain has been poorly controlled since her surgery. It is also noted that the patient had not been receiving her Lyrica during her hospitalization. It is also noted that the patient has had 2 prior total knee replacements in the past. The patient was brought to the emergency room for further evaluation. While in the emergency room, the patient had left lower extremity Doppler showing no signs of DVT. She also had a left knee x-ray showing expected postoperative changes, but no acute process. Due to the patient's intractable pain, the hospitalists were asked to evaluate the patient for admission. While in the hospital, the patient was seen in consultation by Dr. Stoddard with Orthopedic Surgery from [facility] in addition to Dr. Cody with [facility]. The patient did have a slightly elevated CRP, but this is felt to be due to the setting of recent surgery. The patient was afebrile during her stay. She was seen in consultation by Physical Therapy and Occupational Therapy. The patient also had a [facility] referral. The patient's insurance declined a subacute and acute rehab stay. The patient worked with therapy and her pain improved. She was able to ambulate without her walker and do well. The patient had been restarted on her Lyrica and was placed on pain medication regime consisting of Tylenol and oxycodone as needed. This was working well for the patient and she felt ready for discharge to home. Ms. Taylor is stable for discharge to home today. Vital signs are as follows: Temperature 98.1, heart rate 95, respiratory rate 16, O2 sat 92% on room air, blood pressure 137/56. DISCHARGE PLAN: Ms. Taylor will be discharged to home. Activity as tolerated. She has been asked to walk with a walker until she is cleared by Physical Therapy or Dr. Her to no longer use a walker. The patient can be weightbearing as tolerated. As far as the patient's pain control, she has been asked to use Tylenol 500 to 1000 mg every 8 hours as needed for pain in addition to 1 tablet of the Percocet 10/325 that she has at home as needed for pain. The patient has also been encouraged to keep the leg elevated to do her exercise as per Physical Therapy and to use ice on the knee to help with pain and swelling. The patient has been set up with visiting nurse services and they will see her on Sunday, September 02. The patient should be seen in followup with her primary care provider, Dr. Herrera Purdy. She had an appointment for September 06 at 3:20 p.m. and the patient should also keep her followup appointment with Dr. Her and she has an appointment on September 07 for that appointment. The patient has experienced some constipation due to the narcotics and she has been encouraged to take milk of magnesia as needed for her constipation. The garrett should be removed per Dr. Her. This is a summarized report of a complex medical history and hospital stay. For further details, please see the entire medical record. TIME SPENT: Time for this discharge was 50 minutes and 25 minutes was spent face- to-face with the patient discussing discharge plans and instructions. CONDITION ON DISCHARGE: Stable. Reviewed by JONELLE WALTERS 09/08/16 [id number] DISCHARGE SUMMARY: ADDENDUM: The patient had an E. coli UTI noted during her stay. The patient was found to have a colony count of greater than 100,000 of E. coli. The patient denied any urinary symptoms such as dysuria, changes in frequency or urgency. Due to the patient having an asymptomatic bacteriuria, antibiotics were held at this time. The patient was encouraged to notify her primary care provider if she developed any urinary symptoms. Reviewed by JONELLE WALTERS 09/11/16 [id number] CC: Dr. Herrera Purdy; Dr. John Her * [id number]/[facility] #: [id number]/[facility]PS #: [id number] JAMA
--- NOTE | 2016-09-09 04:30 | DS ---
DISCHARGE SUMMARY:* ADDENDUM: The patient had E. coli UTI noted during her stay. The patient was found to have a colony count of greater than 100,000 of E. coli. The patient denied any urinary symptoms such as dysuria, changes in frequency or urgency. Due to the patient having an asymptomatic bacteriuria, antibiotics were held at this time. The patient was encouraged to notify her primary care provider if she developed any urinary symptoms. ARTURO ALVAREZ, EILEEN [id number]/[facility] #: [id number] JAMA
== END 2016-09-01 15:30 | disposition home or self-care (01) ==
LOC: ED 12:16 → MED 17:19
PROVIDERS: ADMIT Internal Medicine; ATTEND Internal Medicine
DX: G89.18 Other acute postprocedural pain (principal); M25.562 Pain in left knee; Z96.652 Presence of left artificial knee joint; K21.9 Gastro-esophageal reflux disease without esophagitis; D50.9 Iron deficiency anemia, unspecified; R82.71 Bacteriuria; I10 Essential (primary) hypertension; G47.33 Obstructive sleep apnea (adult) (pediatric); E66.9 Obesity, unspecified; Z68.41 Body mass index [BMI] 40.0-44.9, adult; M79.89 Other specified soft tissue disorders; Z79.899 Other long term (current) drug therapy; Z79.01 Long term (current) use of anticoagulants; Z88.8 Allergy status to other drugs, medicaments and biological substances; Z85.51 Personal history of malignant neoplasm of bladder
CPT/HCPCS: 36415; 80048; 80053; 81003; 81015; 83735; 84145; 85025; 86140; 87077; 87086; 87186; 94760; 94761; 96361; 96372; 96374; 96375; 96376; 99285; A9270-GY; G0378; G8978-GP-CJ; G8979-GP-CI; G8980-GP-CJ; G8987-GO-CK; G8988-GO-CI; J1650; J2270; J2405

== ENCOUNTER 2017-02-24 14:20 | Emergency (ER) | payer MEDICARE ==
[2017-02-24 15:48] VITALS: BP 146/60
--- NOTE | 2017-02-24 15:48 | ED ---
Lower Extremity - HPI Summary HPI Summary: Patient presents with 10/10 left leg pain which has been worsening over the last few weeks. She states she is able to ambulate, but with severe pain so she remains lying down. Pain travels from the posterior upper left thigh to the left lateral lower leg. This pain shifts depending on how she moves the leg. There is no swelling or erythema or warmth throughout the leg. Denies recent travel. She has had surgery several times on the left knee with knee replacements. Most recent surgery in Aug this year by Dr. Mariano. Previous surgeries performed by Dr. Cody. She denies SOB, chest pain or other complaints. She states the pain dissipates depending on how she is laying. The knee is not involved. It was discussed with patient that d/t the traveling pain and shifts with movement, it is unlikely a DVT. Discussed nerve pain and possible pulling sensation which has been worsening since the surgery and worse with movement. She states she prefers to see Dr. Cody and would like a follow up with him as soon as possible. - History of Current Complaint Chief Complaint: EDExtremityLower Stated Complaint: LEG PAIN Time Seen by Provider: 02/24/17 14:33 Hx Obtained From: Patient Mechanism Of Injury: Unknown Onset of Pain: Days Onset/Duration: Days Severity Initially: Moderate Severity Currently: Severe Pain Intensity: 8 Pain Scale Used: 0-10 Numeric Timing: Intermittent Location: Is Discrete @ - left leg Character Of Pain: Sharp Associated Signs And Symptoms: Positive: Negative Aggravating Factor(s): Standing, Ambulation Alleviating Factor(s): Rest Able to Bear Weight: No - Risk Factors Gout Risk Factors: Negative DVT Risk Factors: Negative Septic Arthritis Risk Factor: Negative - Allergies/Home Medications Allergies/Adverse Reactions: Allergies Allergy/AdvReac Type Severity Reaction Status Date / Time Meperidine [From Demerol HCl] Allergy Unknown Nausea And Verified 03/28/16 11:27 Vomiting Lactone Allergy GI Upset Verified 03/28/16 11:27 Lactose Allergy Nausea And Verified 03/28/16 11:27 Vomiting Pramipexole Allergy See Comment Verified 03/28/16 11:27 Meloxicam AdvReac Severe Shortness Verified 03/28/16 11:27 of Breath GARY Inhibitors AdvReac Coughing Verified 03/28/16 11:27 Aspirin AdvReac Bleeding Verified 03/28/16 11:27 Calcium Channel Blockers AdvReac Edema Verified 03/28/16 11:27 Naproxen [From Aleve] AdvReac Rash Verified 03/28/16 11:27 Sertraline [From Zoloft] AdvReac Anxiety Verified 03/28/16 11:27 Temazepam [From Restoril] AdvReac See Comment Verified 03/28/16 11:27 dairy Allergy Stomach Uncoded 03/28/16 11:27 Cramps pramipexole Allergy See Comment Uncoded 03/28/16 11:27 PMH/Surg Hx/FS Hx/Imm Hx Previously Healthy: Yes Endocrine/Hematology History: Reports: Hx Anemia - iron deficiency Denies: Hx Diabetes Cardiovascular History: Reports: Hx Hypertension Denies: Hx Pacemaker/ICD Respiratory History: Reports: Hx Sleep Apnea GI History: Reports: Hx Gastroesophageal Reflux Disease History: Reports: Other Problems/Disorders - bladder cancer Denies: Hx Dialysis, Hx Renal Disease Musculoskeletal History: Reports: Hx Arthritis, Hx Back Problems Sensory History: Reports: Hx Contacts or Glasses Denies: Hx Hearing Aid Opthamlomology History: Reports: Hx Contacts or Glasses Neurological History: Reports: Hx Headaches, Hx Migraine, Other Neuro Impairments/Disorders - PAIN CLINIC PATIENT Psychiatric History: Denies: Hx Panic Disorder - Cancer History Cancer Type, Location and Year: BLADDER CA Hx Chemotherapy: No Hx Radiation Therapy: No - Surgical History Surgery Procedure, Year, and Place: Bladder Cancer Excision Cystoscopically; Total Right Knee 2004; Total Left Knee 2006; Right Foot Hammertoe Surgery; LSP SURGERY 2011; LT ANKLE SURGERY; CATARACT BILATERAL, back surgery; Knee surgery - Immunization History Hx Pertussis Vaccination: No Immunizations Up to Date: Unable to Obtain/Confirm Infectious Disease History: No Infectious Disease History: Denies: Traveled Outside the [place] in Last 30 Days - Family History Known Family History: Negative: Cardiac Disease - Social History Occupation: Unemployed Lives: With Family Alcohol Use: None Hx Substance Use: No Substance Use Type: Reports: None Hx Tobacco Use: No Smoking Status (MU): Never Smoked Tobacco Review of Systems Constitutional: Negative Eyes: Negative Cardiovascular: Negative Gastrointestinal: Negative Positive: no symptoms reported, see HPI Positive: Arthralgia, Myalgia Neurological: Negative All Other Systems Reviewed And Are Negative: Yes Physical Exam Triage Information Reviewed: Yes Vital Signs On Initial Exam: Initial Vitals Temp Pulse Resp BP Pulse Ox 97.8 F 85 18 175/88 97 02/24/17 14:25 02/24/17 14:25 02/24/17 14:25 02/24/17 14:25 02/24/17 14:25 Vital Signs Reviewed: Yes Appearance: Positive: Well-Appearing, Well-Nourished Skin: Positive: Warm, Skin Color Reflects Adequate Perfusion Head/Face: Positive: Normal Head/Face Inspection Eyes: Positive: Normal, OLLIE Neck: Positive: Supple, No Lymphadenopathy Respiratory/Lung Sounds: Positive: Clear to Auscultation, Breath Sounds Present Cardiovascular: Positive: Normal, RRR Musculoskeletal: Positive: Pain @ - left lateral leg, Other - unable to perform any exam d/t patient pain Neurological: Positive: Speech Normal Psychiatric: Positive: Normal Diagnostics - Vital Signs Vital Signs Temp Pulse Resp BP Pulse Ox 02/24/17 14:25 97.8 F 85 18 175/88 97 - Laboratory Lab Statement: Any lab studies that have been ordered have been reviewed, and results considered in the medical decision making process. Lower Extremity Course/Dx - Course Course Of Treatment: It was discussed with patient that d/t the traveling pain and shifts with movement, it is unlikely a DVT. Discussed nerve pain and possible pulling sensation which has been worsening since the surgery and worse with movement. She states she prefers to see Dr. Cody and would like a follow up with him as soon as possible. Placed a call to Dr. Cody who states he is willing to see that patient in his office next week. She is instructed to call first thing Sunday morning. I have given her rx for pain relief for a few days until she is able to see ortho. - Diagnoses Differential Diagnosis/HQI/PQRI: Positive: Sprain, Strain, Tendonitis Provider Diagnoses: Left leg pain Discharge - Discharge Plan Condition: Stable Disposition: HOME Prescriptions: Cyclobenzaprine TAB* [Flexeril TAB*] 10 mg PO BID PRN #16 tab PRN Reason: Pain oxyCODONE/Acetamin 10/325(NF) [Percocet 10/325 (NF)] 1 tab PO Q6H #20 tab MDD 4 Patient Education Materials: Peripheral Neuropathy (ED) Referrals: Prabhakar Cody MD [Medical Doctor] - Herrera Purdy MD [Primary Care Provider] - Additional Instructions: Follow up with Dr. Cody Call office on Sunday morning If you develop worsening symptoms, return to the ED Percoset up to every 6 hours Ibuprofen on opposite schedule of pain medications Do not take tylenol with percoset. Flexeril should be taken in the morning, and just before bed Moist heat to the area as discussed
[2017-02-24] MEDS ORDERED: oxyCODONE/Acetamin 5/325 MG* TAB PO ONE (15:50)
== END 2017-02-24 15:46 | disposition home or self-care (01) ==
LOC: ED 14:20
DX: M79.605 Pain in left leg (principal); D50.9 Iron deficiency anemia, unspecified; I10 Essential (primary) hypertension; K21.9 Gastro-esophageal reflux disease without esophagitis; Z85.51 Personal history of malignant neoplasm of bladder; Z96.653 Presence of artificial knee joint, bilateral; Z88.6 Allergy status to analgesic agent; Z88.5 Allergy status to narcotic agent; Z88.8 Allergy status to other drugs, medicaments and biological substances
CPT/HCPCS: 99281; A9270-GY

== ENCOUNTER 2017-08-23 15:27 | Emergency (ER) | payer MEDICARE ==
[2017-08-23 15:36] VITALS: BP 182/87
--- NOTE | 2017-08-23 18:22 | RAD ---
INDICATION: Head injury. COMPARISON: Comparison is made with a prior CT of the brain from December 28, 2013. TECHNIQUE: Contiguous axial sections of the brain were obtained from the skull base to the vertex without contrast. FINDINGS: The ventricles, cisterns and sulci are within normal limits. No significant focal abnormality or mass effect is seen. There is no evidence for hemorrhage. There is soft tissue swelling and hematoma anterior to the right maxilla and orbit. No fracture is seen. The visualized portion of the paranasal sinuses and mastoid air cells appear clear. IMPRESSION: 1. NO EVIDENCE FOR ACUTE INTRACRANIAL ABNORMALITY. 2. SOFT TISSUE SWELLING AND HEMATOMA ANTERIOR TO THE RIGHT ORBIT AND MAXILLA.
--- NOTE | 2017-08-23 18:53 | RAD ---
INDICATION: Trauma. COMPARISON: There are no prior studies available for comparison. TECHNIQUE: Contiguous axial sections were obtained from the skull base through the T1 vertebra. Images were reconstructed in the sagittal and coronal planes. FINDINGS: The vertebra are in normal alignment. No prevertebral soft tissue swelling or fracture is seen. There is moderate disc space narrowing and uncinate process spurring present at the C4-C5, C5-C6 and C6-C7 levels. There are hypertrophic changes within the facet joints. There is mild spinal canal narrowing present at the C4-C5 and C5-C6 levels. There is neural foraminal narrowing present bilaterally at multiple levels. IMPRESSION: 1. NO EVIDENCE FOR FRACTURE OR SUBLUXATION. 2. MODERATE CERVICAL SPONDYLOSIS.
--- NOTE | 2017-08-23 19:06 | RAD ---
INDICATION: Facial trauma. TECHNIQUE: Contiguous axial sections of the axial images of the facial bones were obtained and reconstructed in the coronal and sagittal planes. FINDINGS: There is soft tissue swelling and hematoma anterior to the left maxilla and orbit measuring 4.1 x 1.0 cm in size. The pritchard of the orbits and maxillary sinuses appear intact. The zygomatic arches appear intact. There is no evidence for a fracture of the mandible. The nasal bones appear intact. There is mild deviation of the nasal septum toward the left side. The pterygoid plates appear intact. The paranasal sinuses appear clear. IMPRESSION: THERE IS SOFT TISSUE SWELLING AND HEMATOMA ANTERIOR TO THE LEFT MAXILLA AND ORBIT, NO FRACTURE IS SEEN.
[2017-08-23] MEDS ORDERED: Acetaminophen TAB* 325 MG PO ONE (19:53)
--- NOTE | 2017-08-24 11:13 | ED ---
Ridge Zhu Jennifer, scribed for Zak Cotton MD on 08/23/17 at 1924 . Head Injury - HPI Summary HPI Summary: This patient is a 77 year old F presenting to ED with a chief complaint of head injury s/p mechanical fall. Pt was in the hospital after a family member had chemo. Her head hit the curb when she experienced a mechanical fall while walking to the parking lot. The patient rates the pain 6/10 in severity. Symptoms aggravated by nothing. Symptoms alleviated by nothing. Patient reports R knee pain, L eye and cheek contusion. Patient denies LOC and neck pain. - History Of Current Complaint Chief Complaint: EDHeadInjury Stated Complaint: FALL Time Seen by Provider: 08/23/17 19:04 Hx Obtained From: Patient Mechanism Of Injury: Fall From A Standing Position Onset/Duration: Started Hours Ago, Still Present Onset of Pain: Immediate Severity Currently: Moderate Severity Initially: Moderate Pain Intensity: 6 Pain Scale Used: 0-10 Numeric Location of Head Injury: Other: - L eye and cheek contusion Aggravating Factor(s): Other: - nothing Alleviating Factor(s): Other: - nothing Associated Signs And Symptoms: Other: - Patient reports R knee pain, L eye and cheek contusion. Patient denies LOC and neck pain. - Allergies/Home Medications Allergies/Adverse Reactions: Allergies Allergy/AdvReac Type Severity Reaction Status Date / Time MS Meperidine Allergy Unknown Nausea And Verified 04/20/17 08:44 [From Demerol HCl] Vomiting MS Lactone [Lactone] Allergy GI Upset Verified 04/20/17 08:44 MS Lactose [Lactose] Allergy Nausea And Verified 04/20/17 08:44 Vomiting MS Pramipexole Allergy See Comment Verified 04/20/17 08:44 MS Meloxicam [Meloxicam] AdvReac Severe Shortness Verified 04/20/17 08:44 of Breath MS GARY Inhibitors AdvReac Coughing Verified 04/20/17 08:44 [GARY Inhibitors] MS Aspirin [Aspirin] AdvReac Bleeding Verified 04/20/17 08:44 MS Calcium Channel Blockers AdvReac Edema Verified 04/20/17 08:44 [Calcium Channel Blockers] MS Naproxen [From Aleve] AdvReac Rash Verified 04/20/17 08:44 MS Sertraline [From Zoloft] AdvReac Anxiety Verified 04/20/17 08:44 MS Temazepam [From Restoril] AdvReac See Comment Verified 04/20/17 08:44 dairy Allergy Stomach Uncoded 04/20/17 08:44 Cramps pramipexole Allergy See Comment Uncoded 04/20/17 08:44 PMH/Surg Hx/FS Hx/Imm Hx Endocrine/Hematology History: Reports: Hx Anemia - iron deficiency Denies: Hx Diabetes Cardiovascular History: Reports: Hx Hypertension - MEDS Denies: Hx Pacemaker/ICD Respiratory History: Reports: Hx Sleep Apnea GI History: Reports: Hx Gastroesophageal Reflux Disease History: Reports: Other Problems/Disorders - bladder cancer Denies: Hx Dialysis, Hx Renal Disease Musculoskeletal History: Reports: Hx Arthritis, Hx Back Problems Sensory History: Reports: Hx Contacts or Glasses Denies: Hx Hearing Aid Opthamlomology History: Reports: Hx Contacts or Glasses Neurological History: Reports: Hx Headaches, Hx Migraine, Other Neuro Impairments/Disorders - PAIN CLINIC PATIENT Psychiatric History: Denies: Hx Panic Disorder - Cancer History Cancer Type, Location and Year: BLADDER Hx Chemotherapy: No Hx Radiation Therapy: No - Surgical History Surgery Procedure, Year, and Place: Bladder Cancer Excision Cystoscopically;. Total Right Knee 2004; Total Left Knee 2006;. Right Foot Hammertoe Surgery;. LSP SURGERY 2011;. LT ANKLE SURGERY;. CATARACT BILATERAL;. LEFT KNEE REVISION 08/23/2016 Infectious Disease History: No Infectious Disease History: Denies: Traveled Outside the [place] in Last 30 Days - Family History Known Family History: Negative: Cardiac Disease - Social History Alcohol Use: None Hx Substance Use: No Substance Use Type: Reports: None Hx Tobacco Use: No Smoking Status (MU): Never Smoked Tobacco Review of Systems Positive: Other - L eye and cheek contusion Positive: Other - R knee pain; denies neck pain Neurological: Other - denies LOC All Other Systems Reviewed And Are Negative: Yes Physical Exam - Summary Physical Exam Summary: Appearance: The patient is well-nourished in no acute distress and in no acute pain. Skin: The skin is warm and dry and skin color reflects adequate perfusion. HEENT: ~The head is normocephalic and atraumatic. The pupils are equal and reactive. The conjunctivae are clear and without drainage. ~Nares are patent and without drainage. ~Mouth reveals moist mucous membranes and the throat is without erythema and exudate. ~The external ears are intact. The ear canals are patent and without drainage. The tympanic membranes are intact. Periorbital on the left. Extraocular muscles intact. Neck: the neck is supple with full range of motion and non-tender. There are no carotid bruits. ~There is no neck vein distension. Respiratory: Chest is non-tender. ~Lungs are clear to auscultation and breath sounds are symmetrical and equal. Cardiovascular: Heart is regular rate and rhythm. ~There is no murmur or rub auscultated. ~~There is no peripheral edema and pulses are symmetrical and equal. Abdomen: The abdomen is soft and non-tender. ~There are normal bowel sounds heard in all four quadrants and there is no organomegaly palpated. Musculoskeletal: There is no back tenderness noted. There is good capillary refill. ~There is no peripheral edema or calf tenderness elicited. Contusion distal to the right knee anteriorly. Neurological: Patient is alert and oriented to person, place and time. ~The patient has symmetrical motor strength in all four extremities. ~Cranial nerves are grossly intact. Deep tendon reflexes are symmetrical and equal in all four extremities. Psychiatric: The patient has an appropriate affect and does not exhibit any anxiety or depression. GCS: 15 Triage Information Reviewed: Yes Vital Signs On Initial Exam: Initial Vitals Temp Pulse Resp BP Pulse Ox 97.7 F 89 18 182/87 96 08/23/17 15:30 08/23/17 15:30 08/23/17 15:30 08/23/17 15:30 08/23/17 15:30 Vital Signs Reviewed: Yes Diagnostics - Vital Signs Vital Signs Temp Pulse Resp BP Pulse Ox 08/23/17 15:30 97.7 F 89 18 182/87 96 - Laboratory Lab Statement: Any lab studies that have been ordered have been reviewed, and results considered in the medical decision making process. - CT Maxillofacial CT Interpretation Completed By: Radiologist - THERE IS SOFT TISSUE SWELLING AND HEMATOMA ANTERIOR TO THE LEFT MAXILLA AND ORBIT, NO FRACTURE IS SEEN. ED physician has reviewed this radiology report. C-spine CT Interpretation Completed By: Radiologist - 1. NO EVIDENCE FOR FRACTURE OR SUBLUXATION. 2. MODERATE CERVICAL SPONDYLOSIS. ED physician has reviewed this radiology report. Brain CT Interpretation Completed By: Radiologist - 1. NO EVIDENCE FOR ACUTE INTRACRANIAL ABNORMALITY. 2. SOFT TISSUE SWELLING AND HEMATOMA ANTERIOR TO THE RIGHT ORBIT AND MAXILLA. ED physician has reviewed this radiology report. Head Injury Course/Dx Course Of Treatment: Ms Taylor took a fall in the parking lot and hit her head on a curb. SHe had no LOC but did get a COSBY and mild nausea. She had a left periorbital hematoma with a fair amount of swelling but good ocular movement. She also had a small bruise on her right anterior, proximal lower leg. Her imaging was unremarkable and she remained stable in the ED. - Diagnoses Provider Diagnoses: Head injury, Facial contusion Discharge - Discharge Plan Condition: Stable Disposition: HOME Patient Education Materials: Head Injury (ED), Facial Contusion (ED) Referrals: Herrera Purdy MD [Primary Care Provider] - (Follow up with your PCP next week.) Additional Instructions: Recommend Tylenol for pain. Please return to the ED for any new or worsening symptoms. The documentation as recorded by the Ridge babin Jennifer accurately reflects the service I personally performed and the decisions made by me, Zak Cotton MD.
== END 2017-08-23 20:02 | disposition home or self-care (01) ==
LOC: ED 15:27
DX: S09.90XA Unspecified injury of head, initial encounter (principal); S00.83XA Contusion of other part of head, initial encounter; W19.XXXA Unspecified fall, initial encounter; Y93.01 Activity, walking, marching and hiking; Y92.481 Parking lot as the place of occurrence of the external cause; Z88.8 Allergy status to other drugs, medicaments and biological substances
CPT/HCPCS: 70450; 70486; 72125; 99282

== ENCOUNTER → 2019-01-15 14:56 | Emergency (ER) | payer MEDICARE ==
--- NOTE | 2019-01-15 17:06 | ED ---
Head Injury - HPI Summary HPI Summary: 78-year-old female presents with head injury yesterday. She states she fell and bumped her head. States she felt very foggy afterwards. she admits to some dizziness. States she has not had any nausea or vomiting. She was seen by PT and they asked her to come here to evaluate. She is not on blood thinners. She denies any headache currently. No visual changes. Denies any other pain. She has a history of leg pain that is chronic. She is able to ambulate with cane. No chest pain or shortness of breath. fall was mechanical fall. - History Of Current Complaint Chief Complaint: EDFall Stated Complaint: FELL LAST NIGHT/HEAD INJ PER PT Time Seen by Provider: 01/15/19 15:40 Pain Intensity: 3 - Allergies/Home Medications Allergies/Adverse Reactions: Allergies Allergy/AdvReac Type Severity Reaction Status Date / Time GARY Inhibitors Allergy Coughing Verified 01/15/19 15:15 aspirin Allergy Bleeding Verified 01/15/19 15:15 cilostazol Allergy bruising, Verified 01/15/19 15:15 diarrhea, headache, dizzy, nausea lactose Allergy Nausea And Verified 01/15/19 15:15 Vomiting meloxicam Allergy Shortness Verified 01/15/19 15:15 of Breath meperidine [From Demerol] Allergy Nausea And Verified 01/15/19 15:15 Vomiting naproxen Allergy Rash Verified 01/15/19 15:15 pramipexole Allergy sedation Verified 01/15/19 15:15 sertraline [From Zoloft] Allergy Anxiety Verified 01/15/19 15:15 temazepam [From Restoril] Allergy sleepiness Verified 01/15/19 15:15 hydrocodone AdvReac nausea, Verified 01/15/19 15:15 vomiting, no ambition, sleepiness calcium channel blockers Allergy Edema Uncoded 01/30/18 15:43 PMH/Surg Hx/FS Hx/Imm Hx Endocrine/Hematology History: Reports: Hx Anemia - iron deficiency Denies: Hx Diabetes Cardiovascular History: Reports: Hx Hypertension - MEDS Denies: Hx Pacemaker/ICD Respiratory History: Reports: Hx Sleep Apnea GI History: Reports: Hx Gastroesophageal Reflux Disease History: Reports: Other Problems/Disorders - bladder cancer Denies: Hx Dialysis, Hx Renal Disease Musculoskeletal History: Reports: Hx Arthritis, Hx Back Problems Sensory History: Reports: Hx Contacts or Glasses Denies: Hx Hearing Aid Opthamlomology History: Reports: Hx Contacts or Glasses Neurological History: Reports: Hx Headaches, Hx Migraine, Other Neuro Impairments/Disorders - PAIN CLINIC PATIENT Psychiatric History: Denies: Hx Panic Disorder - Cancer History Cancer Type, Location and Year: BLADDER Hx Chemotherapy: No Hx Radiation Therapy: No - Surgical History Surgery Procedure, Year, and Place: Bladder Cancer Excision Cystoscopically;. Total Right Knee 2004; Total Left Knee 2006;. Right Foot Hammertoe Surgery;. LSP SURGERY 2011;. LT ANKLE SURGERY;. CATARACT BILATERAL;. LEFT KNEE REVISION 08/23/2016 Infectious Disease History: No Infectious Disease History: Denies: Traveled Outside the [place] in Last 30 Days - Family History Known Family History: Negative: Cardiac Disease - Social History Alcohol Use: None Hx Substance Use: No Substance Use Type: Reports: None Hx Tobacco Use: No Smoking Status (MU): Never Smoked Tobacco Have You Smoked in the Last Year: No Review of Systems Negative: Fever Negative: Chest Pain Negative: Shortness Of Breath Neurological: Other - resolved Positive: Headache All Other Systems Reviewed And Are Negative: Yes Physical Exam Triage Information Reviewed: Yes Vital Signs On Initial Exam: Initial Vitals Temp Pulse Resp BP Pulse Ox 98 F 89 16 166/92 95 01/15/19 15:08 01/15/19 15:08 01/15/19 15:08 01/15/19 15:08 01/15/19 15:08 Vital Signs Reviewed: Yes Appearance: Positive: Well-Appearing Skin: Positive: Warm, Dry Head/Face: Positive: Normal Head/Face Inspection Eyes: Positive: Normal, EOMI, OLLIE, Conjunctiva Clear ENT: Positive: Normal ENT inspection, Pharynx normal, TMs normal Respiratory/Lung Sounds: Positive: Clear to Auscultation, Breath Sounds Present Cardiovascular: Positive: Normal, RRR Abdomen Description: Positive: Nontender, Soft Bowel Sounds: Positive: Present Musculoskeletal: Positive: Normal Neurological: Positive: Sensory/Motor Intact, Alert, Oriented to Person Place, Time, CN Intact II-III Psychiatric: Positive: Normal - Vaughn Coma Scale Best Eye Response: 4 - Spontaneous Best Motor Response: 6 - Obeys Commands Best Verbal Response: 5 - Oriented Coma Scale Total: 15 Diagnostics - Vital Signs Vital Signs Temp Pulse Resp BP Pulse Ox 01/15/19 15:08 98 F 89 16 166/92 95 - Laboratory Lab Statement: Any lab studies that have been ordered have been reviewed, and results considered in the medical decision making process. - CT brain CT Interpretation Completed By: Radiologist Summary of CT Findings: IMPRESSION: NO ACUTE INTRACRANIAL PATHOLOGY. Head Injury Course/Dx Course Of Treatment: 78-year-old female presents with head injury yesterday. She states she fell and bumped her head. States she felt very foggy afterwards. she admits to some dizziness. States she has not had any nausea or vomiting. She was seen by PT and they asked her to come here to evaluate. She is not on blood thinners. She denies any headache currently. No visual changes. Denies any other pain. She has a history of leg pain that is chronic. She is able to ambulate with cane. No chest pain or shortness of breath. fall was mechanical fall. On exam is normal neuro exam. Contusion of posterior aspect. Nontender neck. CT brain normal. Gave head injury precautions. Told to follow up primary. Patient understands and agrees with the plan. - Diagnoses Differential Diagnosis/HQI/PQRI: Concussion With LOC, Concussion Without LOC, Intracranial Bleed Provider Diagnoses: Head injury Discharge - Sign-Out/Discharge Documenting (check all that apply): Patient Departure Patient Received Moderate/Deep Sedation with Procedure: No - Discharge Plan Condition: Good Disposition: HOME Patient Education Materials: Head Injury (ED) Referrals: Herrera Purdy MD [Primary Care Provider] - Additional Instructions: Place ice on area as needed Take Tylenol for headache every 6 hours Modify activities as tolerated Follow up with primary within 5 days Return to ED if develop any new or worsening symptoms - Billing Disposition and Condition Condition: GOOD Disposition: Home
[2019-01-15 18:05] VITALS: BP 160/69
== END | disposition home or self-care (01) ==
LOC: ED 14:56
DX: S09.90XA Unspecified injury of head, initial encounter (principal); W01.198A Fall on same level from slipping, tripping and stumbling with subsequent striking against other object, initial encounter; D50.9 Iron deficiency anemia, unspecified; I10 Essential (primary) hypertension; G47.30 Sleep apnea, unspecified; K21.9 Gastro-esophageal reflux disease without esophagitis; Z85.51 Personal history of malignant neoplasm of bladder
CPT/HCPCS: 70450; 99282

== ENCOUNTER 2021-12-08 08:14 | Inpatient (IN) ==
[~2021-12-08 08:14] MED LIST: Buffered Lidocaine 1% SYRIN 1 ml INTRADERM ONE; HYDROcodone/ACETAMIN 5/325 mg TAB PO PRN; Lactated Ringers 1000 ml BAG 1,000 ML IV SCH; Metoclopramide 5 MG/ML VIAL (10 mg) IV PRN; Naloxone 0.4 mg VIAL 0.4 mg/ml 1 ml VIAL IV PRN; Ondansetron 4 mg VIAL 2 MG/ML 2 ml VIAL IV PRN; fentaNYL 100 mcg/2 ml 50 MCG/ML VIAL IV PRN
[2021-12-08] MEDS ORDERED: ceFAZolin 2 GM in NS PREMIX 2 GM/100 ML BAG IVPB ONE (08:34)
[2021-12-08] MEDS ORDERED: Dexamethasone IV 4 MG/ML VIAL 1 ml VIAL ONE (08:47)
[2021-12-08] MEDS ORDERED: Ondansetron 4 mg VIAL 2 MG/ML 2 ml VIAL ONE (08:47)
[2021-12-08] MEDS ORDERED: Midazolam 2 mg/2 ml VIAL 1 mg/ml 2 ml VIAL (2 mg) ONE (08:47)
[2021-12-08] MEDS ORDERED: Propofol 10 MG/ML 20 ML BTL ONE ×3 (08:47→16:36)
[2021-12-08] MEDS ORDERED: fentaNYL 250 mcg/5 ml 50 MCG/ML 5 ml VIAL (250 MCG) ONE (08:47)
[2021-12-08] MEDS ORDERED: Morphine 2 MG/ML SYRINGE IV PRN (12:06)
[2021-12-08] MEDS ORDERED: Ondansetron ODT 4 mg TAB 4 MG TAB PO PRN (12:06)
[2021-12-08] MEDS ORDERED: Magnesium Hydroxide LIQ 30 ML UDC PO PRN (12:06)
[2021-12-08] MEDS ORDERED: Ondansetron 4 mg VIAL 2 MG/ML 2 ml VIAL IV PRN (12:06)
[2021-12-08] MEDS ORDERED: fentaNYL 100 mcg/2 ml 50 MCG/ML VIAL ONE (12:53)
[2021-12-08] MEDS ORDERED: Phenylephrine IV 10 MG/ML 1 ml VIAL ONE ×2 (13:12→16:42)
[2021-12-08] MEDS ORDERED: hydrALAZINE 20 mg/ml 1 ML Vial IV IV SLOW PU PRN (16:30)
[2021-12-08] MEDS: ceFAZolin 1 GM ADVAN 1 GM in NS 0.9% 50 ML 50 ML IVPB SCH (19:53)
[2021-12-08] MEDS: Magnesium Hydroxide LIQ 30 ML UDC PO SCH (21:17)
[2021-12-08] MEDS: Lactated Ringers 1000 ml BAG 1,000 ML IV SCH (22:32)
[2021-12-09 01:10] LABS: ABS Lymphocytes 0.4 10^3/ul (1.0-4.8); ABS Monocytes 0.6 10^3/ul (0-0.8); ABS Neutrophils 6.5 10^3/ul (1.5-7.7); Hematocrit 30 % (35-47); Hemoglobin 9.8 g/dL (12.0-16.0); Lymphocyte % 5.9 %; Mean Corpuscular HGB Conc 33 g/dL (31-36); Mean Corpuscular Hemoglobin 30 pg (27-31); Mean Corpuscular Volume 92 fL (80-97); Mean Platelet Volume 8.2 fL (7.4-10.4); Platelet Count 189 10^3/uL (150-450); Red Blood Count 3.26 10^6 /uL (3.70-4.87); Red Cell Distribution Width 14 % (10-15); White Blood Count 7.5 10^3/uL (3.5-10.8)
[2021-12-09 01:28] LABS: Calcium 8.9 mg/dL (8.6-10.3); Magnesium 2.1 mg/dL (1.9-2.7); Potassium 3.8 mmol/L (3.5-5.0); eGFR CKD-EPI 56.9 (>60)
[2021-12-09 02:38] LABS: High Sensitivity Troponin 1 Hr 3 pg/mL (<15)
[2021-12-09] MEDS: Lactated Ringers 1000 ml BAG 1,000 ML IV SCH (03:24)
[2021-12-09] MEDS: ceFAZolin 1 GM ADVAN 1 GM in NS 0.9% 50 ML 50 ML IVPB SCH ×2 (03:38→12:16)
[2021-12-09 06:37] LABS: Hematocrit 30 % (35-47); Mean Platelet Volume 8.8 fL (7.4-10.4); Platelet Count 167 10^3/uL (150-450)
[2021-12-09 07:05] LABS: eGFR CKD-EPI 63.8 (>60)
[2021-12-09] MEDS: Magnesium Hydroxide LIQ 30 ML UDC PO SCH ×2 (08:35→22:16)
[2021-12-09] MEDS: Vitamin THERAPEUTIC TAB PO SCH (08:35)
[2021-12-10 06:52] LABS: Hematocrit 27 % (35-47); Hemoglobin 9.2 g/dL (12.0-16.0); Mean Platelet Volume 8.2 fL (7.4-10.4); Platelet Count 167 10^3/uL (150-450)
[2021-12-10] MEDS: Vitamin THERAPEUTIC TAB PO SCH (09:39)
[2021-12-10] MEDS: Magnesium Hydroxide LIQ 30 ML UDC PO SCH ×2 (09:40→20:33)
[2021-12-10 16:11] LABS: Urine Appearance Clear; Urine Bilirubin Negative (Negative); Urine Blood Negative (Negative); Urine Color Yellow; Urine Glucose Negative (Negative); Urine Ketones Negative (Negative); Urine Nitrite Negative (Negative); Urine Protein Negative (Negative); Urine Urobilinogen Negative (Negative)
[2021-12-11 06:52] LABS: Hematocrit 28 % (35-47); Hemoglobin 9.5 g/dL (12.0-16.0); Mean Platelet Volume 8.4 fL (7.4-10.4); Platelet Count 150 10^3/uL (150-450)
[2021-12-11] MEDS: Magnesium Hydroxide LIQ 30 ML UDC PO SCH ×2 (10:33→20:14)
[2021-12-11] MEDS: Vitamin THERAPEUTIC TAB PO SCH (10:33)
[2021-12-11] MEDS: [UNRECOGNIZED DRUG - OTHER] PO SCH ×2 (11:57→20:22)
[2021-12-11] MEDS: VITAMINS A C E ZINC COPPER PO SCH ×2 (11:57→20:22)
[2021-12-12 06:02] LABS: Hematocrit 28 % (35-47); Hemoglobin 9.2 g/dL (12.0-16.0); Mean Platelet Volume 8.6 fL (7.4-10.4); Platelet Count 177 10^3/uL (150-450)
[2021-12-12] MEDS: Magnesium Hydroxide LIQ 30 ML UDC PO SCH ×2 (09:19→21:45)
[2021-12-12] MEDS: Vitamin THERAPEUTIC TAB PO SCH (09:20)
[2021-12-12] MEDS: [UNRECOGNIZED DRUG - OTHER] PO SCH ×2 (09:20→21:46)
[2021-12-12] MEDS: VITAMINS A C E ZINC COPPER PO SCH ×2 (09:20→21:46)
[2021-12-13 06:28] LABS: Hematocrit 29 % (35-47); Hemoglobin 9.6 g/dL (12.0-16.0); Mean Platelet Volume 8.1 fL (7.4-10.4); Platelet Count 212 10^3/uL (150-450)
[2021-12-13] MEDS: VITAMINS A C E ZINC COPPER PO SCH ×2 (09:00→21:45)
[2021-12-13] MEDS: Vitamin THERAPEUTIC TAB PO SCH (09:00)
[2021-12-13] MEDS: [UNRECOGNIZED DRUG - OTHER] PO SCH ×2 (09:00→21:45)
[2021-12-13] MEDS: Magnesium Hydroxide LIQ 30 ML UDC PO SCH ×2 (09:01→21:44)
[2021-12-14 07:05] LABS: Calcium 9.2 mg/dL (8.6-10.3); Potassium 3.9 mmol/L (3.5-5.0); eGFR CKD-EPI 59.1 (>60)
[2021-12-14] MEDS: Vitamin THERAPEUTIC TAB PO SCH (08:52)
[2021-12-14] MEDS: [UNRECOGNIZED DRUG - OTHER] PO SCH ×2 (08:53→23:01)
[2021-12-14] MEDS: VITAMINS A C E ZINC COPPER PO SCH ×2 (08:53→23:01)
[2021-12-14] MEDS: Magnesium Hydroxide LIQ 30 ML UDC PO SCH ×2 (09:32→22:48)
[2021-12-15] MEDS: Magnesium Hydroxide LIQ 30 ML UDC PO SCH (10:07)
[2021-12-15] MEDS: Vitamin THERAPEUTIC TAB PO SCH (10:08)
[2021-12-15] MEDS: [UNRECOGNIZED DRUG - OTHER] PO SCH (10:08)
[2021-12-15] MEDS: VITAMINS A C E ZINC COPPER PO SCH (10:08)
[2021-12-15 11:05] VITALS: BP 114/69
== END 2021-12-15 13:10 | DRG 470 ==
LOC: SSU 08:14 → OR 08:14
PROVIDERS: ADMIT Orthopaedic Surgery Adult Reconstructive Orthopaedic Surgery; ATTEND Orthopaedic Surgery Adult Reconstructive Orthopaedic Surgery